=== PATIENT | female | born 1955 | race Two or more races ===

== ENCOUNTER → 2023-02-14 | Emergency (ER) | payer OTHER ==
[~2023-02-14] VITALS: Ht 157.5 cm; Wt 68.9 kg
[~2023-02-14] MED LIST: ALEGRA; ATACAND HCT 321 EAC1 PO; CARAFATE1 GM PO; CELEBREX50 MG; LIPITOR20 MG PO; LYRICA50 MG; PEPCID AC10 MG; PROTONIX40 M1 PO; SYNTHROID112 MCG PO; VALTREX1000 MG; ZANAFLEX4 M1 PO
== END | disposition home or self-care (01) ==
LOC: ER 09:15
DX: H81.10 Benign paroxysmal vertigo, unspecified ear (principal)
CPT/HCPCS: 96372; 99284; J2765

== ENCOUNTER 2023-02-16 10:04 | Emergency (ER) | payer OTHER ==
[~2023-02-16] VITALS: Ht 157.5 cm; Wt 68.9 kg
[2023-02-16] MEDS ORDERED: ATACAND HCT 321 EAC1 PO (10:30)
[2023-02-16] MEDS ORDERED: LIPITOR20 MG PO (10:30)
[2023-02-16] MEDS ORDERED: SYNTHROID112 MCG PO (10:30)
[2023-02-16] MEDS ORDERED: VALTREX1000 MG (10:31)
[2023-02-16] MEDS ORDERED: PROTONIX40 M1 PO (10:31)
[2023-02-16] MEDS ORDERED: LYRICA50 MG (10:31)
[2023-02-16] MEDS ORDERED: ZANAFLEX4 M1 PO (10:32)
[2023-02-16] MEDS ORDERED: ALEGRA (10:32)
[2023-02-16] MEDS ORDERED: CARAFATE1 GM PO (10:32)
[2023-02-16] MEDS ORDERED: PEPCID AC10 MG (10:33)
[2023-02-16] MEDS ORDERED: CELEBREX50 MG (10:33)
== END 2023-02-16 12:14 | disposition home or self-care (01) ==
LOC: ER 10:04
DX: M54.2 Cervicalgia (principal); M54.12 Radiculopathy, cervical region; M54.6 Pain in thoracic spine
CPT/HCPCS: 72040; 72070; 96372; 99284; J3490